=== PATIENT | female | born 1980 | race Caucasian/White ===

== ENCOUNTER 2023-05-21 20:47 | Emergency (ER) | payer MEDICAID ==
[~2023-05-21] VITALS: Ht 165.1 cm; Wt 54.5 kg
[2023-05-21 21:25] VITALS: BP 121/68; PULSE 87; RESP 14; O2SAT 97
[2023-05-21] MEDS ORDERED: CYCL-1 PO (23:01)
== END 2023-05-21 23:31 | disposition home or self-care (01) ==
LOC: ER 20:47
DX: M54.2 Cervicalgia (principal); M25.571 Pain in right ankle and joints of right foot; Z88.2 Allergy status to sulfonamides; Z56.0 Unemployment, unspecified; V98.8XXA Other specified transport accidents, initial encounter; Y93.89 Activity, other specified; Y92.89 Other specified places as the place of occurrence of the external cause; Y99.8 Other external cause status
CPT/HCPCS: 99283

== ENCOUNTER 2024-04-20 15:39 | Outpatient (CLI) | payer MEDICAID ==
[~2024-04-20 15:39] MED LIST: CYCL-1 PO
== END 2024-04-20 23:59 | disposition home or self-care (01) ==
LOC: RAD 15:39
PROVIDERS: ATTEND Student in an Organized Health Care Education/Training Program
DX: M25.561 Pain in right knee (principal); M25.562 Pain in left knee; M25.551 Pain in right hip; M25.552 Pain in left hip
CPT/HCPCS: 73522; 73564

== ENCOUNTER 2024-11-12 06:39 | Outpatient (CLI) | payer MEDICAID | END 2024-11-12 23:59 | disposition home or self-care (01) | LOC: MRI02 06:39 | PROVIDERS: ATTEND Family Medicine | DX: M25.572 Pain in left ankle and joints of left foot (principal) | CPT/HCPCS: 73721 ==

== ENCOUNTER 2024-11-24 17:05 | Emergency (ER) | payer MEDICAID ==
[~2024-11-24] VITALS: Ht 162.6 cm; Wt 56.8 kg
[2024-11-24 17:09] VITALS: TEMP 98.3
[2024-11-24 17:33] LABS: BASOPHILS % (AUTO) 0.7 % (0-1); EOSINOPHILS # (AUTO) 0.1 X10'3 (0-0.9); EOSINOPHILS % (AUTO) 0.8 % (0-6); HEMATOCRIT 28.2 % (35.0-45.0); HEMOGLOBIN 8.9 g/dl (12.0-16.0); LYMPHOCYTES # (AUTO) 1.7 X10'3 (1.1-4.8); MEAN CORPUSCULAR HEMOGLOBIN 22.9 PG (27.0-31.0); MEAN CORPUSCULAR HGB CONC 31.6 g/dL (33.0-36.5); MEAN CORPUSCULAR VOLUME 72.4 FL (78-98); MEAN PLATELET VOLUME 7.7 FL (7.4-10.4); MONOCYTES # (AUTO) 0.4 X10'3 (0-0.9); MONOCYTES % (AUTO) 6.7 % (2-12); NEUTROPHILS # (AUTO) 4.2 X10'3 (1.8-7.7); NEUTROPHILS % (AUTO) 65.8 % (42-75); PLATELET COUNT 381 X10'3 (140-440); RED BLOOD COUNT 3.89 X10'6 (4.20-5.60); RED CELL DISTRIBUTION WIDTH 20.5 % (11.5-14.5); WHITE BLOOD COUNT 6.4 X10'3 (4.5-11.0)
[2024-11-24 17:56] LABS: ALANINE AMINOTRANSFERASE 33 U/L (12-78); ALBUMIN 4.1 G/DL (3.4-5.0); ALBUMIN/GLOBULIN RATIO 1.1 (1.1-1.5); ALKALINE PHOSPHATASE 72 IU/L (46-116); ANION GAP 10 (8-16); ASPARTATE AMINO TRANSFERASE 25 U/L (10-37); BILIRUBIN,TOTAL 0.5 MG/DL (0.1-1.0); BLOOD UREA NITROGEN 14 MG/DL (7-18); BUN/CREATININE RATIO 22.2 (10.0-20.0); CALCIUM 8.9 MG/DL (8.5-10.1); CHLORIDE 108 MMOL/L (99-107); CREATININE 0.63 MG/DL (0.40-0.90); GLUCOSE 132 MG/DL (70-104); POTASSIUM 3.4 MMOL/L (3.5-5.1); SODIUM 144 MMOL/L (135-145); TOTAL CARBON DIOXIDE 25.7 MMOL/L (24-32); TOTAL PROTEIN 7.7 G/DL (6.4-8.2); eCRCL 96 ML/MIN; eGFR > 90 ML/MIN
[2024-11-24 18:02] LABS: PRO BRAIN NATRIURETIC PEPTIDE 62 PG/ML (0-125)
[2024-11-24 18:14] LABS: D-DIMER 0.42 MG/L FEU (0-0.50)
[2024-11-24 18:17] LABS: MAGNESIUM 2.2 MG/DL (1.5-2.4)
[2024-11-24 18:40] VITALS: BP 105/69; PULSE 74; RESP 16; O2SAT 98
[2024-11-24] MEDS: potassium Cl 20 mEq SR tablet PO STA (18:46)
[2024-11-24 19:44] LABS: ANISOCYTOSIS 2+; ELLIPTOCYTES 2+; HYPOCHROMASIA 1+; MICROCYTOSIS FEW; POIKILOCYTOSIS 3+; SCHISTOCYTES 2+
== END 2024-11-24 18:54 | disposition home or self-care (01) ==
LOC: ER 17:06
DX: I47.10 Supraventricular tachycardia, unspecified (principal); E87.6 Hypokalemia; Z88.2 Allergy status to sulfonamides; Z56.0 Unemployment, unspecified
CPT/HCPCS: 36415; 71045; 80053; 83735; 83880; 84484; 85008; 85025; 85379; 93005; 99285

== ENCOUNTER 2025-08-10 16:52 | Emergency (ER) | payer BC, MEDICAID ==
[~2025-08-10] VITALS: Ht 165.1 cm; Wt 55.2 kg
[2025-08-10 16:54] VITALS: BP 112/63; PULSE 74; TEMP 98.5; O2SAT 99
--- NOTE | 2025-08-10 17:00 | Physician Documentation ---
History of Present Illness Chief Complaint: Flank Pain Stated Complaint: FLANK PAIN Primary Medical Doctor: [facility] DR RUBI HPI Patient is a very pleasant 44-year-old female that presents to the emergency department for evaluation of flank pain x1 week. Patient reports she was seen by her primary care provider they ordered imaging for her at [facility] imaging. They are several weeks out per the patient. She is reports that she has had worsening of the filling pain so she is reporting to the emergency department for evaluation. Patient denies fever chills nausea vomiting diarrhea at this time. Medication Reconciliation Allergies: Coded Allergies: sulfamethoxazole (Verified Allergy, Unknown, 05/21/23) trimethoprim (Verified Allergy, Unknown, 05/21/23) Scheduled Cyclobenzaprine* (Cyclobenzaprine*), 1 TAB PO Q8H Ibuprofen (Ibuprofen), 1 TAB PO Q8H Scheduled PRN Lorazepam (Ativan), 1 TAB PO Q12H PRN PRN for anxiety Past Medical History Past Surgical History: other Alcohol Use: Rarely Drug Use: none Lives with: Family Lives In: Home Occupation: unemployed Review of Systems ROS As stated above in the HPI, otherwise all systems are reviewed and negative. Physical Exam Vital Signs: Temperature: 98.5, Source: Temporal, Heart Rate: 74, Respiratory Rate: 18, BP: 112/63, Pulse Oximetry: 99, Weight: 55.200 Oxygen Flow Rate: 0 Physical Exam VITALS: Reviewed and as above. GENERAL: Alert, nontoxic appearing, no apparent distress. RESPIRATORY: No increased work of breathing, no respiratory distress, speaking in full clear sentences BACK: No CVA tenderness GI: Nontender to palpation, soft, no rebound, no guarding Progress Results/Orders Results/Orders Vital Signs 08/10/25 16:54 Temp 98.5 Pulse 74 Resp 18 B/P (MAP) 112/63 Pulse Ox 99 O2 Flow Rate 0 EKG/XRAY/CT/US/VASC/MRI Ultrasound #1: Impression Exam: ULTRASOUND PELVIS W/ORWO DPLX ULTRASOUND OF THE PELVIS (NON-OB) FEMALE INDICATION: LLQ Pain COMPARISON: None TECHNIQUE AND FINDINGS: Transabdominal Ultrasound: Transabdominal ultrasound examination was performed. Endovaginal Ultrasound: Endovaginal ultrasound was performed for improved visualization of pelvic structures. UTERUS: The uterus is retroverted and measures 10.2 x 6.0 x 6.7 cm. The endometrial stripe is 10 mm in thickness, within normal limits. There is a large fibroid in the anterior uterine body measuring approximately 5.1 x 5.0 x 5.4 cm. RIGHT OVARY: The right ovary measures 3.5 x 2.2 x 1.8 cm. The right ovary demonstrates expected Doppler flow. There is no evidence of abnormal adnexal mass. There is a 1.7 x 1.6 x 1.6 cm anechoic dominant follicle within the right ovary. LEFT OVARY: The left ovary measures 5.3 x 4.2 x 5.6 cm. The left ovary demon strates expected Doppler flow. There is a complex cystic lesion associated with the left ovary measuring up to 4.9 cm with mildly complex fluid. The cystic lesion CUL de SAC: No evidence of pelvic free fluid. IMPRESSION: Prominent fibroid in the anterior uterine body measuring 5.4 cm. Complex cystic lesion associated with the left ovary measuring up to 4.9 cm. Further evaluation with contrast-enhanced CT or MRI is recommended. COMMENT: Both transabdominal ultrasound and endovaginal ultrasound were p erformed; the above impression reflects the composite impression from these two studies. No additional comment. Electronically Signed by:NOEL SRAMIENTO MD Date & Time: 08/11/259 Dictated by: NOEL SARMIENTO MD Dictation date and time: 08/11/259 Ultrasound #2: Impression Exam: ULTRASOUND KIDNEY NON VASC INDICATION: Left flank pain TECHNIQUE: Multiple real-time sonographic images of the kidneys and bladder were obtained. COMPARISON: None FINDINGS: The right kidney measures 9.6 x 3.8 x 5.0 cm in length, which is normal in size. There is normal echogenicity of the right kidney. No hydronephrosis. The left kidney measures 9.4 x 5.1 x 3.8 cm in length, which is normal in size. There is normal echogenicity of the left kidney. No hydronephrosis. The urinary bladder was empty. IMPRESSION: 1. No acute sonographic abnormality. Electronically Signed by:CELSO NUNES MD Date & Time: 08/11/25 0002 Dictated by: CELSO NUNES MD Dictation date and time: 08/11/25 0002 Medical Decision Making Additional information obtaine: N/A Findings This 44-year-old female presented with one-week of progressively worsening left- sided flank pain, patient has been seen by primary care for this and a ultrasound of her kidney was ordered however patient reports pain is increasing and she decided to come to the emergency department. Patient reports no fever, chills, or other systemic symptoms and reports no priscilla hematuria which is reassuring. I had a lengthy and careful discussion with the patient about risks and benefits of CT scan for better diagnostic certain the for possible kidney stone however with shared decision-making patient will defer CT scan at this time and opt for ultrasound of kidney. Lab work is significant for trace hematuria in UA otherwise lab work reassuring without abnormality. Ultrasound of kidney did not demonstrate evidence of hydronephrosis or obstruction was otherwise normal, however there was an incidental finding on kidney ultrasound with pelvic ultrasound recommended, a pelvic ultrasound was performed and uterine fibroids and complex ovarian cysts on left ovary demonstrated. Patient is otherwise well-appearing and hemodynamically stable and appropriate for outpatient follow up, due to complex cystic lesions on ultrasound patient will require prompt follow up with an OBGYN and she would likely need further outpatient imaging. I had a lengthy discussion with the patient regarding the need for prompt follow up with OBGYN which patient verbalized understanding of. Patient provided detailed and careful follow up instructions and return to care precautions which she verbalized understanding of. Differential Dx:Considerations: -Complete, -Incomplete, -Inevitable, -Missed, Appendicitis, Bowel obstruction, Constipation, Gastritis/PUD, Gastroenteritis, Inflammatory BD, Ischemic bowel, Ovarian cyst/torsion, Urinary obstruction, Urinary tract infection, Urolithiasis, Other (Malignancy, hydronephrosis, pyelonephritis) Departure Time of Disposition: 00:08 Disposition: 01 HOME / SELF CARE / HOMELESS Impression: Primary Impression: Flank pain, left side Additional Impressions: Uterine mass Ovarian mass Anxiety about health Condition: Improved Discharge Instructions: Kidney Stones Additional Instructions: There were some concerning findings on your pelvic ultrasound indicating masses on both your ovaries and in your uterus that will require urgent follow up with an OBGYN. The ultrasound of your kidney was reassuring and your lab work was reassuring against a problem with your kidney, there was not a clear cause of the pain on your left side though as we discussed this could be the passage of a kidney stone or referred pain from the masses found on your pelvic ultrasound, or could represent another cause that we are unable to see on ultrasound. I have prescribed you high-dose ibuprofen for this pain. I have additionally prescribed you some Ativan to be used for anxiety. Please follow up as soon as possible with OBGYN and your primary care provider. Please contact medical records department tomorrow for a copy of your ultrasound report to take to any follow up appointment. Please follow up with your primary care provider in the next few days. Please return to the emergency department for any new or worsening concerning symptoms. Referrals: NO PRIMARY CARE PROVIDER (PCP) Prescriptions Lorazepam (Ativan) 0.5 Mg Tablet 1 TAB PO Q12H PRN PRN for anxiety for 3 Days, #6 TAB 0 Refills Prov: VANESSA DENNISON [facility] [place] 08/11/25 Ibuprofen (Ibuprofen) 800 Mg Tablet 1 TAB PO Q8H for pain for 10 Days, #30 TAB 0 Refills Prov: VANESSA DENNISON [facility] [place] 08/11/25 Education Educated: Patient Educated regarding: diagnosis, treatment, prognosis, need for follow up Signature Scribe Signature: No scribe Attestation: The note accurately reflects work and decisions made by me.HEBERT Wong 08/11/25 00:[address] [facility] [place] Aug 10, 2025 17:[address] [facility] [place] Aug 10, 2025 22:30
[2025-08-10 17:33] LABS: URINE HCG NEGATIVE (NEG)
[2025-08-10 17:35] LABS: MEAN PLATELET VOLUME 8.3 FL (7.4-10.4); RED CELL DISTRIBUTION WIDTH 18.3 % (11.5-14.5)
[2025-08-10 17:51] LABS: CREATININE 0.48 MG/DL (0.40-0.90); TOTAL CARBON DIOXIDE 28.7 MMOL/L (24-32); eCRCL 128 ML/MIN; eGFR > 90 ML/MIN
[2025-08-10 18:51] LABS: LEUKOCYTE ESTERASE ,URINE TRACE (Neg); NITRITES, URINE NEGATIVE (Neg); OCCULT BLOOD,URINE SMALL (Neg)
[2025-08-10 19:00] LABS: UA COLLECTION TYPE CLN CATCH MIDSTREAM
[2025-08-10 19:01] LABS: SQUAMOUS EPITHELIAL CELL,UR MODERATE /LPF (FEW)
[2025-08-10 19:02] LABS: AMORPHOUS PHOSPHATES 3+
--- NOTE | 2025-08-11 00:05 | RADIOLOGY REPORT ---
INDICATION: Left flank pain TECHNIQUE: Multiple real-time sonographic images of the kidneys and bladder were obtained. COMPARISON: None FINDINGS: The right kidney measures 9.6 x 3.8 x 5.0 cm in length, which is normal in size. There is normal echogenicity of the right kidney. No hydronephrosis. The left kidney measures 9.4 x 5.1 x 3.8 cm in length, which is normal in size. There is normal echogenicity of the left kidney. No hydronephrosis. The urinary bladder was empty. IMPRESSION: 1. No acute sonographic abnormality.
--- NOTE | 2025-08-11 00:13 | RADIOLOGY REPORT ---
ULTRASOUND OF THE PELVIS (NON-OB) FEMALE INDICATION: LLQ Pain COMPARISON: None TECHNIQUE AND FINDINGS: Transabdominal Ultrasound: Transabdominal ultrasound examination was performed. Endovaginal Ultrasound: Endovaginal ultrasound was performed for improved visualization of pelvic structures. UTERUS: The uterus is retroverted and measures 10.2 x 6.0 x 6.7 cm. The endometrial stripe is 10 mm in thickness, within normal limits. There is a large fibroid in the anterior uterine body measuring approximately 5.1 x 5.0 x 5.4 cm. RIGHT OVARY: The right ovary measures 3.5 x 2.2 x 1.8 cm. The right ovary demonstrates expected Doppler flow. There is no evidence of abnormal adnexal mass. There is a 1.7 x 1.6 x 1.6 cm anechoic dominant follicle within the right ovary. LEFT OVARY: The left ovary measures 5.3 x 4.2 x 5.6 cm. The left ovary demonstrates expected Doppler flow. There is a complex cystic lesion associated with the left ovary measuring up to 4.9 cm with mildly complex fluid. The cystic lesion CUL de SAC: No evidence of pelvic free fluid. IMPRESSION: Prominent fibroid in the anterior uterine body measuring 5.4 cm. Complex cystic lesion associated with the left ovary measuring up to 4.9 cm. Further evaluation with contrast-enhanced CT or MRI is recommended. COMMENT: Both transabdominal ultrasound and endovaginal ultrasound were performed; the above impression reflects the composite impression from these two studies. No additional comment.
[2025-08-11] MEDS ORDERED: LORA-268 PO (00:15)
[2025-08-11] MEDS ORDERED: IBUP-1986 PO (00:15)
[2025-08-11] MEDS: ibuprofen tablet 400 MG TABLET PO ONE (00:33)
[2025-08-11 00:34] VITALS: RESP 20
== END 2025-08-11 00:48 | disposition home or self-care (01) ==
LOC: ER 16:53
DX: R10.A2 Flank pain, left side (principal); N85.8 Other specified noninflammatory disorders of uterus; N83.9 Noninflammatory disorder of ovary, fallopian tube and broad ligament, unspecified; F41.9 Anxiety disorder, unspecified; Z88.1 Allergy status to other antibiotic agents; Z88.2 Allergy status to sulfonamides
CPT/HCPCS: 36415; 76770; 76830; 76856; 80053; 81001; 81025; 83690; 85025; 93976; 99284